=== PATIENT | female | born 1955 | race Caucasian/White ===

== ENCOUNTER 2016-12-23 06:56 | Emergency (ER) | payer MEDICARE ==
[2016-12-23 06:50] LABS: BASOPHILS 0 %; EOSINOPHILS 0 %; HEMOGLOBIN 13.1 g/dL (12.0-16.0); IMMATURE GRANULOCYTES 0.3 %; IMMATURE GRANULOCYTES ABSOLUTE 0.02 10/3/uL (0.0-0.11); LYMPHOCYTES 11.8 %; LYMPHOCYTES ABSOLUTE 0.85 10/3/uL (0.67-4.30); MEAN CORPUS HGB CONC 32.6 g/dL (32.0-36.0); MEAN CORPUSCULAR HEMOGLOB 28.2 pg (26.0-34.0); MEAN PLATELET VOLUME 9.8 fL (9.2-13.0); MONOCYTES 4.1 %; NEUTROPHILS 83.8 %; NEUTROPHILS ABSOLUTE 6.06 10/3/uL (2.02-8.40); PLATELET COUNT 139 10/3/uL (150-400); RBC DISTRIBUTION WIDTH 16.6 % (12.0-16.0); RED CELL COUNT 4.64 10/6/uL (4.0-5.6)
[~2016-12-23 06:56] MED LIST: ACET500CAP PO; AMB5 PO; APRES50 PO; ASAB PO; ATIVAN2 MG; ATIVAN2 MG PO; BENTYL10 PO; C1 PO; C2 PO; C5 PO; CALTRAT600 PO; CAT1 PO; CELEXA20 PO; CELEXA40 MG PO; CITRUCELSF; CLOBETASOL0.051 TOP; CLOBETASOL0.054 EX; CO Q-10100 MG PO; COQ-1010 MG PO; COQ-10200 MG OR; COUMADIN10 MG PO; COUMADIN4 MG PO; COUMADIN7.5 MG PO; Coumadin PO; EPOGEN; EPOGEN10000 MG/M SC; EPOGEN2000 MG/ML SC; EPOGEN4000 MG/ML SC; FISH OIL1200 MG PO; FOLBEE PLU1 OR; FOLBEE PLU1 PO; FOLBEE PO; FOLIC PO; HYDRALAZINE100 MG PO; IMOD PO; IRON INFUSION INF; JANTOVEN10 MG PO; LEVOTHROID150 MCG PO; LEVOTHYROXIN112 MCG PO; LEVOTHYROXIN175 MCG PO; LEVOTHYROXIN200 MCG PO; LIPITOR40 PO; LORTAB 5 PO; MAG-SR535 MG PO; MAGOX4 PO; NORCO1 TA1 PO; NORV5 PO; OS500+D PO; PARICALCITOL 4 MCG PO; PHAZYME PO; PHOSLO PO; PLAVIX PO; PRILO PO; PROBIOTIC; PROTONIX PO; RANITIDINE300 MG PO; REFRESH OPH; REVATIO20 PO; ROCALTROL0.5 MCG OR; RYTHMOL225 MG PO; SEVE800T PO; SIMETHICONE 180 MG PO; SYN112 PO; SYNTHROID175 MCG PO; SYNTHROID200 MCG PO; TESSALON200 MG PO; TRAN200 PO; TRANDAT100 PO; TRANDAT300 PO; TUMSROLL PO; V5 PO; VIAGRA100 MG PO; VIAGRA25 PO; VITAMIN B PO; VITC500 PO; WARFARIN PO; ZANAFLEX 4 MG TA4 MG PO; ZITH250 PO; ZOFRAN8 PO; ZYRTEC ALLGY10 MG PO
[2016-12-23 06:59] LABS: HEMATOCRIT 40.2 % (36.0-48.0); MANUAL DIFF NO %; MEAN CORPUSCULAR VOLUME 86.6 fL (80-100); WHITE BLOOD CELLS 7.2 10/3/uL (4.5-10.5)
[2016-12-23 07:04] LABS: INTERNATIONAL NORMAL RATI 1.8 UNITS (-); PARTIAL THROMBO TIME 29.6 SEC (22.5-37.2); PROTIME (NOT ORD) 20.9 SEC (12.0-14.5)
[2016-12-23 07:14] LABS: CALCIUM, SERUM 9.1 MG/DL (8.5-10.4); CHLORIDE, SERUM 99 MMOL/L (96-112); CO2 (CARBON DIOXIDE) 26 MMOL/L (24-34); SODIUM, SERUM 141 MMOL/L (135-148); TROPONIN I 0.03 NG/ML (<0.05)
[2016-12-23 07:17] LABS: BUN (BLOOD UREA NITROGEN) 15 MG/DL (6-23); CHEST PAIN PROFILE TAT 0 Hrs 32 Mins; CREATININE 3.08 MG/DL (0.55-1.02); GFR AFRICAN AMERICAN 18 ML/MIN (>=60); GFR NON AFRICAN AMERICAN 16 ML/MIN (>=60); GLUCOSE, SERUM 141 MG/DL (60-99); POTASSIUM, SERUM 3.3 MMOL/L (3.5-5.3)
== END 2016-12-23 08:33 | disposition home or self-care (01) ==
LOC: ER 06:56
PROVIDERS: Specialist
DX: I13.11 Hypertensive heart and chronic kidney disease without heart failure, with stage 5 chronic kidney disease, or end stage renal disease (principal); N18.6 End stage renal disease; Z99.2 Dependence on renal dialysis; Z95.5 Presence of coronary angioplasty implant and graft; Z90.710 Acquired absence of both cervix and uterus; Z88.8 Allergy status to other drugs, medicaments and biological substances; Z79.01 Long term (current) use of anticoagulants; Z79.899 Other long term (current) drug therapy
CPT/HCPCS: 71010; 80048; 83735; 84443; 84484; 85025; 85610; 85730; 93005; 96374; 99285; A9270-GY

== ENCOUNTER 2017-01-09 14:51 | Emergency (ER) | payer MEDICARE ==
[2017-01-09 12:02] LABS: BASOPHILS 0.4 %; BASOPHILS ABSOLUTE 0.02 10/3/uL (0.0-0.16); EOSINOPHILS 1.5 %; EOSINOPHILS ABSOLUTE 0.07 10/3/uL (0.0-0.53); HEMATOCRIT 37.5 % (36.0-48.0); HEMOGLOBIN 11.9 g/dL (12.0-16.0); LYMPHOCYTES 29.1 %; LYMPHOCYTES ABSOLUTE 1.34 10/3/uL (0.67-4.30); MANUAL DIFF NO %; MEAN CORPUS HGB CONC 31.7 g/dL (32.0-36.0); MEAN CORPUSCULAR HEMOGLOB 27.7 pg (26.0-34.0); MEAN CORPUSCULAR VOLUME 87.4 fL (80-100); MEAN PLATELET VOLUME 10.1 fL (9.2-13.0); MONOCYTES 7.8 %; MONOCYTES ABSOLUTE 0.36 10/3/uL (0.21-1.20); NEUTROPHILS 61.2 %; NEUTROPHILS ABSOLUTE 2.82 10/3/uL (2.02-8.40); PLATELET COUNT 99 10/3/uL (150-400); RED CELL COUNT 4.29 10/6/uL (4.0-5.6); WHITE BLOOD CELLS 4.6 10/3/uL (4.5-10.5)
[2017-01-09 12:09] LABS: INTERNATIONAL NORMAL RATI 2.1 UNITS (-); PARTIAL THROMBO TIME 34.8 SEC (22.5-37.2); PROTIME (NOT ORD) 23.2 SEC (12.0-14.5)
[2017-01-09 12:18] LABS: BUN (BLOOD UREA NITROGEN) 31 MG/DL (6-23); CALCIUM, SERUM 8.5 MG/DL (8.5-10.4); CHEST PAIN PROFILE TAT 0 Hrs 20 Mins; CHLORIDE, SERUM 102 MMOL/L (96-112); CO2 (CARBON DIOXIDE) 27 MMOL/L (24-34); CREATININE 6.55 MG/DL (0.55-1.02); GFR AFRICAN AMERICAN 7 ML/MIN (>=60); GFR NON AFRICAN AMERICAN 6 ML/MIN (>=60); POTASSIUM, SERUM 4.2 MMOL/L (3.5-5.3); SODIUM, SERUM 140 MMOL/L (135-148); TROPONIN I 0.02 NG/ML (<0.05)
[2017-01-09 12:19] LABS: GLUCOSE, SERUM 92 MG/DL (60-99)
== END 2017-01-09 18:46 | disposition home or self-care (01) ==
LOC: ER 14:51
PROVIDERS: Nurse Practitioner Family
DX: R07.9 Chest pain, unspecified (principal); R06.02 Shortness of breath; D69.6 Thrombocytopenia, unspecified; N18.9 Chronic kidney disease, unspecified; F17.200 Nicotine dependence, unspecified, uncomplicated; Z88.8 Allergy status to other drugs, medicaments and biological substances; Z95.5 Presence of coronary angioplasty implant and graft; Z79.899 Other long term (current) drug therapy; Z88.1 Allergy status to other antibiotic agents; Z79.01 Long term (current) use of anticoagulants
CPT/HCPCS: 71111; 80048; 81001; 83735; 83880; 84484; 85025; 85379; 85610; 85730; 93005; 99285; A9270-GY; J1040

== ENCOUNTER 2017-06-01 15:11 | Inpatient (IN) | payer MEDICARE ==
[~2017-06-01] VITALS: Ht 170.2 cm; Wt 73.0 kg
--- NOTE | ~2017-06-01 | OP ---
Record Of Operation [facility] [address] [place] [address] NAME: ALONZO STANFORD : 55 STATUS : ADM IN PAT#: [id number] AGE: 61 ADM/REG DATE : 06/01/17 MR#: [id number] REPORT SERV DATE: 06/02/17 DICTATED BY: ERVIN CHICAS DATE: 06/01/17 REPORT STATUS : Draft TRANSCRIBED BY: MILAGROS DATE: 06/01/17 DATE OF PROCEDURE: DICTATION ENDS HERE. DAVID/MILAGROS Ervin Chicas DO / [id number]
--- NOTE | ~2017-06-01 | CN ---
Consultation Report [facility] [address] [place]. [address] NAME: ALONZO STANFORD : 55 STATUS : ADM IN [facility]#: [id number] AGE: 61 ADM/REG DATE : 06/01/17 MR#: [id number] REPORT SERV DATE: 06/02/17 DICTATED BY: LAUREN SARMIENTO DATE: 06/01/17 REPORT STATUS : Draft TRANSCRIBED BY: MODL DATE: 06/01/17 CONSULT DATE OF CONSULTATION: 06/01/2017 REASON FOR CONSULTATION: Ventilator management, hypothermia management. HISTORY OF PRESENT ILLNESS: The patient is a 61-year-old white female with a past medical history of end-stage renal disease, history of atrial fibrillation, and history of aortic stenosis, status post TAVR procedure in September of this year, who is admitted to the ICU tonight following a cardiac arrest. Per the patient's family, the patient was recently hospitalized at [facility] several weeks ago with constitutional complaints and fevers of unknown etiology. Apparently, she was on antibiotics over there and had blood cultures growing 2 different species of staphylococcus. Infectious Disease was following her over there who did a variety of serologies. At the end of the day, they felt like she did not have active bacterial infection. Antibiotics were discontinued and she was sent home. At home, she was doing well until several days ago when the family says she just again became ill feeling with weakness as well as episodes of chills. They note that she developed a cough that was really nonproductive and then over the last 24 to 48 hours has been having some abdominal pain as well as nausea. She then had some emesis when she got here to the emergency room. On arrival here, she initially looked well. She was given some Phenergan for her nausea and vomiting. Sometime thereafter the patient went unresponsive and developed a ventricular tachycardia arrest requiring CPR and several rounds of ACLS and then got return of spontaneous circulation. The patient was intubated during the code blue. Following return of spontaneous circulation, the patient was not doing anything purposeful from a neurologic standpoint, so hypothermia protocol is being initiated. The patient also is in shock and on Levophed drip. The patient's family says other than that they have not noticed anything else going on over the last few days. PAST MEDICAL HISTORY: 1. End-stage renal disease, on home dialysis. 2. Hypertension. 3. Atrial fibrillation. 4. Obstructive sleep apnea. 5. Pulmonary hypertension. 6. Hypothyroidism. 7. History of severe aortic stenosis, status post TAVR in September of this year. HOME MEDICATIONS: See medication reconciliation form. ALLERGIES: INCLUDE ROCEPHIN, NITROFURANTOIN, SETH INHIBITORS, AND PREDNISONE. SOCIAL HISTORY: Per the chart, no tobacco, alcohol, or IV drug abuse. Consultation Report [address] [place]. [address] NAME: ALONZO STANFORD : 55 STATUS : ADM IN [facility]#: [id number] AGE: 61 ADM/REG DATE : 06/01/17 MR#: [id number] REPORT SERV DATE: 06/02/17 DICTATED BY: LAUREN SARMIENTO DATE: 06/01/17 REPORT STATUS : Draft TRANSCRIBED BY: MILAGROS DATE: 06/01/17 FAMILY HISTORY: Per the chart, noncontributory. REVIEW OF SYSTEMS: Unable to obtain secondary to intubation and poor mental status. PHYSICAL EXAMINATION: VITAL SIGNS: Temperature 97.9, heart rate 83, respiratory rate 17, blood pressure 81/34. GENERAL: Nonpurposeful movement, otherwise, not following commands or waking up. HEENT: ET tube in place. Pupils equal, round, and reactive to light. NECK: Supple. Nontender. No lymphadenopathy. No thyromegaly. No jugular venous distention. LUNGS: Coarse breath sounds bilaterally. CARDIOVASCULAR: Regular rate and rhythm. No murmurs, rubs, or gallops. ABDOMEN: Soft, nondistended. Positive bowel sounds. No hepatosplenomegaly. EXTREMITIES: No cyanosis, clubbing, or edema. NEURO: Currently on Precedex, but prior to sedation, she had some spontaneous movement, but nothing purposeful and not following commands. PSYCH: Unable to assess. LABS AND IMAGING: Lactic acid 18. Metabolic profile remarkable for BUN of 51, creatinine of 6.1, chloride of 93, CO2 of 18, albumin 2.4, total bilirubin 1.3, alkaline phosphatase 213, ALT 3300, AST 4400. Troponin 0.8. CBC remarkable for white count of 44,000, hemoglobin of 5.8, platelets of 104. Post-intubation blood gas with pH of 7.05, pCO2 of 40, and PO2 of 104. ASSESSMENT AND PLAN: The patient is a 61-year-old white female with past medical history of end-stage renal disease, atrial fibrillation, and aortic stenosis, status post TAVR earlier this year, who now presents to the ICU following a cardiac arrest with acute respiratory failure, shock, severe lactic acidosis, shock liver, and chronic renal failure. 1. Acute hypoxic respiratory failure. The patient currently is on the ventilator. We will get another followup ABG now that she is in the ICU and follow serial chest x- rays. We will wean her ventilator as tolerated. Currently, she is on hypothermia protocol, so our goal pO2 will be greater than 80 and our goal pCO2 will be between 30 and 45. Once she is off hypothermia protocol, we can start more aggressive weaning of her ventilator depending on her mental status. The patient's immediate post-intubation chest x-ray was concerning for potential pleural effusion on her right. She does have a drop in her hemoglobin following CPR, so we are getting another chest x-ray to make sure she is not developing a hemothorax. 2. Shock. The patient is currently requiring Levophed drip, have her on hypothermia, our goal MAP for now is greater than 80. We will add vasopressin in an attempt to lower her Levophed dose, empirically agree with antibiotics as per Nephrology. We are getting blood cultures and a procalcitonin. We will also get right upper quadrant ultrasound to evaluate her elevated LFTs, though I suspect these are secondary to shock and cardiac arrest. We will also check a cortisol level and start on hydrocortisone as the patient was on a steroid taper as an outpatient. Consultation Report [address] [place]. [address] NAME: ALONZO STANFORD : 55 STATUS : ADM IN [facility]#: [id number] AGE: 61 ADM/REG DATE : 06/01/17 MR#: [id number] REPORT SERV DATE: 06/02/17 DICTATED BY: LAUREN SARMIENTO DATE: 06/01/17 REPORT STATUS : Draft TRANSCRIBED BY: MODMaddison DATE: 06/01/17 3. Acute encephalopathy, concern for anoxic injury following cardiac arrest. We are initiating hypothermia protocol and will follow this for the next 72 hours. Given the patient's hemoglobin drop, we are looking closely for signs of active bleeding. If she does have this or becomes much more hemodynamically unstable, we will likely have to abort the hypothermia protocol and rewarm the patient. 4. Ventricular tachycardia arrest. The patient is currently on amiodarone drip. We are trending cardiac markers and getting a formal echocardiogram tomorrow. Her grand scribe, Dr. Kahn, will see the patient tomorrow. I appreciate the consult. I will continue to follow closely with you with this complicated patient. Please call if you have any questions. Total critical care time spent on this patient was 47 minutes. TIANNA/MILAGROS Lauren Sarmiento MD / [id number] CC: Lucio Kemp M.D.
--- NOTE | ~2017-06-01 | OP ---
Record Of Operation [facility] [address] [place]. [address] NAME: ALONZO STANFORD : 55 STATUS : DIS IN PAT#: [id number] AGE: 61 ADM/REG DATE : 06/01/17 MR#: [id number] REPORT SERV DATE: 06/02/17 DICTATED BY: LAUREN SARMIENTO DATE: 06/02/17 REPORT STATUS : Draft TRANSCRIBED BY: MODMaddison DATE: 06/02/17 DATE OF PROCEDURE: 06/02/2017 TITLE OF PROCEDURE: Arterial line placement. INDICATION: Shock. PROCEDURE NOTE: A time-out was completed verifying correct patient and procedure. The patient's left groin was prepped and draped in sterile fashion. No lidocaine was needed to anesthetize the area as the patient was properly sedated. An Arrow arterial line was introduced into the left common femoral artery. The catheter was threaded over the guidewire. The needle was removed with appropriate pulsatile blood return. The catheter was then sutured in place to the skin and a sterile dressing applied. I was present for the entire procedure. The patient tolerated the procedure well. There were no complications. TIANNA/MILAGROS Lauren Sarmiento MD / [id number] CC: Lucio Kemp M.D.
--- NOTE | ~2017-06-01 | HP ---
History And Physical [place] [id number] [facility] [place]. [address] NAME: ALONZO STANFORD : 55 STATUS : ADM IN [facility]#: [id number] AGE: 61 ADM/REG DATE : 06/01/17 MR#: [id number] REPORT SERV DATE: 06/02/17 DICTATED BY: LUCIO HSU DATE: 06/01/17 REPORT STATUS : Draft TRANSCRIBED BY: MODL DATE: 06/01/17 DATE OF ADMISSION: 06/01/2017 HISTORY OF PRESENT ILLNESS: A 61-year-old white female, end-stage renal disease, admitted to the hospital for cardiac arrest in the ER. Presented to the emergency room with nausea, feeling poorly, and in the emergency room, had some dry heaves and hypotension, was placed in Trendelenburg, got very short of breath and then arrested. CPR was performed initially, was in ventricular tachycardia, amiodarone drip corrected that, and she was intubated, ventilated, and possibly aspirated. She is now in ICU, being treated with hypothermia for a witnessed arrest. Intubated, ventilated, pressors, amiodarone and a bicarbonate drip in place. PAST MEDICAL HISTORY: Her past medical history is that of anephric, was on hemodialysis for a while, had a kidney transplant and now is back on hemodialysis. She has had both her [place] kidneys and her kidney transplant removed. She is home hemodialysis patient dialyzing every other day at night, supervised by Dr. Luther. In September of this year, had a TAVR procedure for aortic valve disease, is chronically hypothyroid. Has hypertension with LVH and diastolic congestive heart failure, coronary artery disease followed by Dr. Mayur Pond, chronic arthritis, hyperlipidemia, pulmonary hypertension after DVT, and an inferior vena cava filter, but on Coumadin for atrial fibrillation. Recently at [facility], where she was admitted for fever and chills, thought initially to be septic and blood cultures did grow Staph, but thought to be contaminant. Was treated with vancomycin initially, it was stopped. Dr. Rainer Curry performed a ELIZA and ablation on 05/18/2017 because of some tachyarrhythmias, developed some pericarditis after the ablation, was treated with daily hemodialysis and finally agreed to steroid therapy and was sent home on 05/28/2017 with tapering steroid regimen. She has been nauseated since then, poor p.o. intake, part of it and thought to be due to constipation. She is now four days later presented to the emergency room at [facility] for care. SOCIAL HISTORY: Noncontributory. FAMILY HISTORY: Noncontributory. MEDICATIONS: Not clear at this point as with no other medicines were when she left the [facility] after TAVR, but do not know the medications she went home from [facility]. ALLERGIES: SHE IS ALLERGIC TO ROCEPHIN, SETH INHIBITORS, NITROFURANTOIN, PREDNISONE, (DEVELOPED PSEUDOTUMOR CEREBRI ON STEROIDS IN THE PAST), AND HYDRALAZINE. PHYSICAL EXAMINATION: VITAL SIGNS: Currently 88/53, heart rate of 80, respirations of 24, and afebrile. On amiodarone drip, bicarbonate drip and Levophed drip. Starting vasopressin. In the emergency room, she was moving all four extremities, but not purposely and now is unresponsive on Precedex. HEENT: Shows oral ET tube. LUNGS: With good air movement bilaterally. History And Physical [address] [address] NAME: ALONZO STANFORD : 55 STATUS : ADM IN [facility]#: [id number] AGE: 61 ADM/REG DATE : 06/01/17 MR#: [id number] REPORT SERV DATE: 06/02/17 DICTATED BY: LUCIO HSU DATE: 06/01/17 REPORT STATUS : Draft TRANSCRIBED BY: MILAGROS DATE: 06/01/17 CARDIOVASCULAR: Without rub. ABDOMEN: Soft. Bowel sounds are scant. EXTREMITIES: No edema. Has a right upper extremity AV fistula. NEUROLOGIC: As above. Sedated. No rash. No significant edema. LABORATORY DATA: Lab shows pH of 7.05, pCO2 of 40, pO2 of 104, 100% FiO2 on a ventilator. Sodium 137, potassium 5.1, chloride 96, CO2 of 17, BUN of 48, creatinine 6.09, blood sugar 139, calcium 8.4, magnesium 2.6. Albumin 3.15, total protein 6.2, total bilirubin was 1.8, SGOT of 2219, SGPT of 1482, lipase 351. Troponins after the arrest showed a troponin of 0.71. TSH was 27. Lactic acid level was 15.6. Blood cultures x2 are pending. White count is 30,000, hemoglobin 7, hematocrit 24, platelet count 66,000. INR of 5.2, ProTime of 47, PTT 53. Chest x-ray shows ET tube in good position, but pleural effusion developing in the right hemithorax, possibly from blood post CPR. ASSESSMENT: 1. Nausea and vomiting, suspicious for liver disease at home, although was constipated and some of her nausea may have been related more to constipation than any other etiology. I am not sure if she was started on new medications at [facility] either to account for the liver changes and/or nausea. 2. End-stage renal disease, on hemodialysis Monday, Monday, and Monday. Last dialysis yesterday. Followed by Dr. Luther. Right arm arteriovenous fistula. 3. Atherosclerotic cardiovascular disease with history of coronary artery disease, Dr. Mayur Pond follows; peripheral vascular disease, status post transcatheter aortic valve replacement in September by Dr. Rosales; and status post ablation on 05/18/[address] Rainer Curry. 4. Hypothyroidism. 5. Hypertension with left ventricular hypertrophy and diastolic heart failure. 6. Anticoagulated for transcatheter aortic valve replacement and atrial fibrillation. INR made worse by elevated liver enzymes. The family states her INR was 2.3 yesterday. PLAN: Critical care consult. I have discussed the case with Dr. Sarmiento, and I have gone over the patient with him and discussed the situation with him and the family. I have consulted Dr. Rainer Curry for arrhythmias, Dr. Mayur Pond for Cardiology, starting antibiotics, on pressors, and amiodarone and bicarbonate drip. We will follow serial labs overnight. CHINTAN/MILAGROS Lucio Hsu M.D. / [id number] CC: History And Physical [address] [address] NAME: ALONZO STANFORD : 55 STATUS : ADM IN [facility]#: [id number] AGE: 61 ADM/REG DATE : 06/01/17 MR#: [id number] REPORT SERV DATE: 06/02/17 DICTATED BY: LUCIO HSU DATE: 06/01/17 REPORT STATUS : Draft TRANSCRIBED BY: MODL DATE: 06/01/17 Lucio Hsu M.D.
--- NOTE | ~2017-06-01 | EHP ---
ER History and Physical [address] [place]. [address] NAME: ALONZO STANFORD : 55 STATUS : ADM IN [facility]#: [id number] AGE: 61 ADM/REG DATE : 06/01/17 MR#: [id number] REPORT SERV DATE: 06/02/17 DICTATED BY: ERVIN HURD DATE: 06/01/17 REPORT STATUS : Draft TRANSCRIBED BY: MILAGROS DATE: 06/01/17 CHIEF COMPLAINT: Nausea and vomiting. HISTORY OF PRESENT ILLNESS: The patient is a 61-year-old female who presented to the emergency room this afternoon for persistent nausea and generalized weakness. She is a hemodialysis patient and has home hemodialysis. Per the history which is somewhat hard to get from her and her family that she recently was admitted to [facility] and had some multiple blood cultures that were positive what sounds to be several different species of bacteria. She had a somewhat prolonged course there and was discharged and since then has had persistent nausea and continued to decline at home. She also recently had an atrial fib ablation there. Today, when I see the patient, she is complaining of nausea, in no acute distress, but does appear to feel ill. The family is at the bedside. This note is supplement the paper chart in the ER. During her time here, the patient required multiple doses of antiemetics and was persistently nauseated. Workup ensued did reveal that she had a potassium of 6 despite her hemodialysis completion last night as well as calcium of 6.3. I actually was on the way to discuss the labs with the patient when a code blue was called overhead by the nursing staff evidently. The patient had become unresponsive. I arrived and found CPR in progress. The patient was pulseless. See the code sheet for full details of the ACLS and resuscitation efforts. After a pulse was regained, the patient's airway was secured. She was moved to a larger room where during the first episode, she was pulseless and then ended up converting to be V tach, which required synchronized cardioversion. She was moved in the room where she again resumed V tach. She was given amiodarone as well as synchronized cardioversion with resolution of the VT. The right femoral central line was placed by myself for access. See the paper chart for full details of procedure. The patient continued to have multiple episodes of pulselessness requiring CPR as well as multiple rounds of epinephrine administration. Once she lost her pulse initially, bicarb boluses were initiated as well as correction of her potassium with calcium, D50, and insulin. A call to Nephrology as well as Cardiology was made. I discussed this case with Dr. Kemp as well Prabhakar ontiveros, the field radio operator, as well as Dr. Kahn, the patient's primary rodding machine tender. A call has been placed to Dr. Curry, who is her insurance customer service specialist as well. Initiation of healing protocol was done in ICU admission. At the time of this dictation, patient has been somewhat stable. No more VT once amiodarone bolus and drip had been started as well as blood pressure remains stable on a Levophed drip. We placed the patient on a bicarb drip due to worsening acidemia and this has been discussed with knitter mechanic as well. Repeat labs as well as repeat blood gases showed worsening acidemia and an INR of 5.2. On chest x-ray here shows a somewhat of a moderate to large size right pleural effusion, which on the same is possibly related to hemothorax given the amount of CPR the patient has received. Dr. Kemp was notified. An FFP has been ordered, will be started on admission to the ICU. She does have a procalcitonin of 0.79 as well as a white blood cell count of 30 now. Given the clinical history here in the ER, I am also pretty suspicious that the patient likely aspirated which is what is said in much of the events that have happened since. ER History and Physical [address] [address] NAME: ALONZO STANFORD : 55 STATUS : ADM IN [facility]#: [id number] AGE: 61 ADM/REG DATE : 06/01/17 MR#: [id number] REPORT SERV DATE: 06/02/17 DICTATED BY: ERVIN HURD DATE: 06/01/17 REPORT STATUS : Draft TRANSCRIBED BY: MILAGROS DATE: 06/01/17 The patient's family was updated continuously by me as well as nursing staff during her workup and resuscitative efforts here. I discussed and advised them on ICU admission and further care per primary team. Greater than 120 minutes of critical care time outside of any billable procedures. DAVID/MILAGROS Ervin Hurd DO / [id number] CC: Lucio Kemp M.D.
--- NOTE | ~2017-06-01 | OP ---
Record Of Operation [facility] [address] [place]. [address] NAME: ALONZO STANFORD : 55 STATUS : ADM IN [facility]#: [id number] AGE: 61 ADM/REG DATE : 06/01/17 MR#: [id number] REPORT SERV DATE: 06/02/17 DICTATED BY: ERVIN HURD DATE: 06/01/17 REPORT STATUS : Draft TRANSCRIBED BY: MODL DATE: 06/01/17 DATE OF PROCEDURE: 06/01/2017 PROCEDURE: Endotracheal intubation. INDICATION FOR PROCEDURE: Respiratory failure. PROCEDURE IN DETAIL: The patient is undergoing CPR in a code situation and required emergent intubation during one of the pulse checks. The [id number] that was being used to ventilate the patient was removed and using a Mac 3 blade, the cords were attempted to be visualized, but due to the patient's resistance to mouth opening and still moving somewhat, the first attempted intubation was abandoned and continued [id number] was done with a good chest rise and good ventilation. Rocuronium was used for paralyzation of the patient and on second attempt, the mouth was able to be opened easily. The patient was positioned where using a Mac 3 blade with good visualization of the cords, a 7.5 ET tube was placed through the cords and the cuff was insufflated. The patient had good color capnography post intubation with good bilateral breath sounds. ET tube was 2 cm above the yamile on post intubation chest x-ray. COMPLICATIONS: None. DAVID/MILAGROS Ervin Hurd DO / [id number] CC: MEEK HSU
[2017-06-01 17:04] LABS: BASOPHILS 0 %; BASOPHILS ABSOLUTE 0.01 10/3/uL (0.0-0.16); EOSINOPHILS 0 %; ER CBC TAT 0 Hrs 12 Mins; HEMATOCRIT 26.6 % (36.0-48.0); HEMOGLOBIN 8.4 g/dL (12.0-16.0); LYMPHOCYTES 7.4 %; MANUAL DIFF NO %; MEAN CORPUS HGB CONC 31.6 g/dL (32.0-36.0); MEAN CORPUSCULAR HEMOGLOB 28.3 pg (26.0-34.0); MEAN CORPUSCULAR VOLUME 89.6 fL (80-100); MEAN PLATELET VOLUME 12.7 fL (9.2-13.0); NEUTROPHILS 81.6 %; NEUTROPHILS ABSOLUTE 19.91 10/3/uL (2.02-8.40); PLATELET COUNT 106 10/3/uL (150-400); RBC DISTRIBUTION WIDTH 18.4 % (12.0-16.0); RED CELL COUNT 2.97 10/6/uL (4.0-5.6); WHITE BLOOD CELLS 24.4 10/3/uL (4.5-10.5)
[2017-06-01 17:22] LABS: CHLORIDE, SERUM 96 MMOL/L (96-112); GLUCOSE, SERUM 96 MG/DL (60-99); SGPT(ALT) 1482 U/L (5-65); TOTAL PROTEIN 6.2 G/DL (6.0-8.5)
[2017-06-01 17:35] LABS: SGOT(AST) 2249 U/L (5-40)
[2017-06-01 17:36] LABS: ALBUMIN 3.1 G/DL (3.5-5.0); ALKALINE PHOSPHATASE 237 U/L (45-117); BUN (BLOOD UREA NITROGEN) 47 MG/DL (6-23); CALCIUM, SERUM 6.7 MG/DL (8.5-10.4); CO2 (CARBON DIOXIDE) 16 MMOL/L (24-34); CREATININE 5.91 MG/DL (0.55-1.02); GFR AFRICAN AMERICAN 8 ML/MIN (>=60); GFR NON AFRICAN AMERICAN 7 ML/MIN (>=60); GLOBULIN 3.1 G/DL (2.5-4.1); SODIUM, SERUM 133 MMOL/L (135-148); TOTAL BILIRUBIN 1.8 MG/DL (0-1.2)
[2017-06-01 18:56] LABS: BASOPHILS 0.1 %; BASOPHILS ABSOLUTE 0.04 10/3/uL (0.0-0.16); EOSINOPHILS 0.2 %; EOSINOPHILS ABSOLUTE 0.05 10/3/uL (0.0-0.53); HEMOGLOBIN 7.4 g/dL (12.0-16.0); IMMATURE GRANULOCYTES 5.9 %; IMMATURE GRANULOCYTES ABSOLUTE 1.82 10/3/uL (0.0-0.11); LYMPHOCYTES 13.8 %; LYMPHOCYTES ABSOLUTE 4.27 10/3/uL (0.67-4.30); MEAN CORPUS HGB CONC 30.8 g/dL (32.0-36.0); MEAN CORPUSCULAR HEMOGLOB 28.8 pg (26.0-34.0); MEAN CORPUSCULAR VOLUME 93.4 fL (80-100); MONOCYTES 7.3 %; MONOCYTES ABSOLUTE 2.26 10/3/uL (0.21-1.20); NEUTROPHILS 72.7 %; NEUTROPHILS ABSOLUTE 22.46 10/3/uL (2.02-8.40); PLATELET COUNT 66 10/3/uL (150-400); RBC DISTRIBUTION WIDTH 18.8 % (12.0-16.0); RED CELL COUNT 2.57 10/6/uL (4.0-5.6); WHITE BLOOD CELLS 30.9 10/3/uL (4.5-10.5)
[2017-06-01 18:59] LABS: MANUAL DIFF NO %
[2017-06-01 19:08] LABS: INTERNATIONAL NORMAL RATI 5.2 UNITS (-); PROTIME (NOT ORD) 47.5 SEC (12.0-14.5)
[2017-06-01 19:10] LABS: BE (BASE EXCESS) -18.2 MEQ/L (0 +/- 2.5); CARBOXYHEMOGLOBIN 2.6 % (0-3); HCO3 (ACTUAL BICARBONATE) 10.8 MEQ/L (23-27); HEMOBLOGIN CONTENT 7.1 G/DL (12-16); INSTRUMENT SERIAL # 8087; METHEMOGLOBIN 0.3 % (0-3); MODE CMV; O2 CONTENT 9.3 VOL% (18-24); OPERATOR ID 17589; PCO2 (CO2 TENSION) 40 MMHG (35-45); PO2 (O2 TENSION) 104 MMHG (79-93); SAMPLE Arterial; TIDAL VOLUME 500 ML; pH 7.05 (7.37-7.43)
[2017-06-01 19:17] LABS: BUN (BLOOD UREA NITROGEN) 48 MG/DL (6-23); CHLORIDE, SERUM 96 MMOL/L (96-112); CO2 (CARBON DIOXIDE) 17 MMOL/L (24-34); CREATININE 6.09 MG/DL (0.55-1.02); GFR AFRICAN AMERICAN 8 ML/MIN (>=60); GFR NON AFRICAN AMERICAN 7 ML/MIN (>=60); POTASSIUM, SERUM 5.1 MMOL/L (3.5-5.3); SODIUM, SERUM 137 MMOL/L (135-148)
[2017-06-01 19:22] LABS: CALCIUM, SERUM 8.4 MG/DL (8.5-10.4); CHEST PAIN PROFILE TAT 0 Hrs 32 Mins; GLUCOSE, SERUM 139 MG/DL (60-99); TROPONIN I 0.71 NG/ML (<0.05)
[2017-06-01 19:24] LABS: PROCALCITONIN 0.79 ng/mL (<0.5)
[2017-06-01 19:25] LABS: LACTATE 15.6 MMOL/L (0.3-2.4)
[2017-06-01 19:29] LABS: BAND NEUTROPHILS 5 %; ER DIFF TAT 0 Hrs 39 Mins; IMMATURE GRANS ABSOLUTE (CALC) 0.93 10/3/uL (0.0-0.11); LYMPHOCYTES 9 %; LYMPHOCYTES ABSOLUTE (CALC) 2.78 10/3/uL (0.67-4.30); METAMYELOCYTES 2 %; MONOCYTES 8 %; MONOCYTES ABSOLUTE (CALC) 2.47 10/3/uL (0.21-1.20); MYELOCYTES 1 %; NEUTROPHILS ABSOLUTE (CALC) 24.72 10/3/uL (2.02-8.40); SEGMENTED NEUTROPHIL (0) 75 %; TOTAL NUCLEATED CELLS 100
[2017-06-01 19:30] LABS: ANISOCYTOSIS 1+ (5-10/OIF) (0-5/OIF); PLATELET ESTIMATE DEC (ADEQUATE)
[2017-06-01 20:51] LABS: HEMOGLOBIN 5.8 g/dL (12.0-16.0); MEAN CORPUS HGB CONC 30.5 g/dL (32.0-36.0); MEAN CORPUSCULAR HEMOGLOB 28.4 pg (26.0-34.0); MEAN CORPUSCULAR VOLUME 93.1 fL (80-100); MEAN PLATELET VOLUME 11.4 fL (9.2-13.0); PLATELET COUNT 104 10/3/uL (150-400); RBC DISTRIBUTION WIDTH 18.8 % (12.0-16.0); RED CELL COUNT 2.04 10/6/uL (4.0-5.6); WHITE BLOOD CELLS 44.2 10/3/uL (4.5-10.5)
[2017-06-01 20:57] LABS: MANUAL DIFF YES %
[2017-06-01 21:09] LABS: ANISOCYTOSIS 1+ (5-10/OIF) (0-5/OIF); MACROCYTES 1+ (5-10/OIF) (0-5/OIF); MICROCYTES 1+ (5-10/OIF) (0-5/OIF); MONOCYTES 4 %; MONOCYTES ABSOLUTE (CALC) 1.77 10/3/uL (0.21-1.20); TOTAL NUCLEATED CELLS 100
[2017-06-01 21:18] LABS: BAND NEUTROPHILS 8 %; SEGMENTED NEUTROPHIL (0) 80 %
[2017-06-01 21:19] LABS: IMMATURE GRANS ABSOLUTE (CALC) 1.33 10/3/uL (0.0-0.11); LYMPHOCYTES 5 %; LYMPHOCYTES ABSOLUTE (CALC) 2.21 10/3/uL (0.67-4.30); METAMYELOCYTES 3 %
[2017-06-01 21:20] LABS: PLATELET ESTIMATE SLT DEC (ADEQUATE)
[2017-06-01 21:21] LABS: BURR CELLS 1+ (3-10/OIF) (0-2/OIF); SCHISTOCYTES FEW (3-10/OIF)
[2017-06-01 21:27] LABS: BUN (BLOOD UREA NITROGEN) 51 MG/DL (6-23); CHLORIDE, SERUM 93 MMOL/L (96-112); CO2 (CARBON DIOXIDE) 18 MMOL/L (24-34); CREATININE 6.19 MG/DL (0.55-1.02); GFR AFRICAN AMERICAN 8 ML/MIN (>=60); GFR NON AFRICAN AMERICAN 7 ML/MIN (>=60); GLUCOSE, SERUM 148 MG/DL (60-99); POTASSIUM, SERUM 4.3 MMOL/L (3.5-5.3); SGPT(ALT) 3306 U/L (5-65); SODIUM, SERUM 138 MMOL/L (135-148)
[2017-06-01 21:30] LABS: ALBUMIN 2.4 G/DL (3.5-5.0); ALKALINE PHOSPHATASE 213 U/L (45-117); CALCIUM, SERUM 6.9 MG/DL (8.5-10.4); GLOBULIN 2.4 G/DL (2.5-4.1); PHOSPHORUS, SERUM 8.4 MG/DL (2.5-4.5); TOTAL BILIRUBIN 1.3 MG/DL (0-1.2); TOTAL PROTEIN 4.8 G/DL (6.0-8.5)
[2017-06-01 21:31] LABS: CK-MB 4.5 NG/ML; CPK 314 U/L (0-200); SGOT(AST) 4447 U/L (5-40); TROPONIN I 0.83 NG/ML (<0.05)
[2017-06-01 22:49] LABS: INTERNATIONAL NORMAL RATI 4.7 UNITS (-); PARTIAL THROMBO TIME 43.2 SEC (22.5-37.2); PROTIME (NOT ORD) 43.5 SEC (12.0-14.5)
[2017-06-01 23:28] LABS: BE (BASE EXCESS) -11.4 MEQ/L (0 +/- 2.5); CARBOXYHEMOGLOBIN 0.3 % (0-3); HCO3 (ACTUAL BICARBONATE) 16.1 MEQ/L (23-27); HEMOBLOGIN CONTENT 5.5 G/DL (12-16); INSTRUMENT SERIAL # 11843; METHEMOGLOBIN 3.9 % (0-3); O2 CONTENT 0.8 VOL% (18-24); PCO2 (CO2 TENSION) 46 MMHG (35-45); PO2 (O2 TENSION) 19 MMHG (79-93); SAMPLE Arterial; pH 7.16 (7.37-7.43)
[2017-06-01 23:29] LABS: MODE CMV; TIDAL VOLUME 500 ML
[2017-06-02 01:01] LABS: MEAN CORPUSCULAR HEMOGLOB 30.1 pg (26.0-34.0); MEAN CORPUSCULAR VOLUME 92.2 fL (80-100); MEAN PLATELET VOLUME 12.2 fL (9.2-13.0); NUCLEATED RED BLOOD CELLS 0.1 /100WBC (0-0); RBC DISTRIBUTION WIDTH 16.5 % (12.0-16.0)
[2017-06-02 01:03] LABS: WHITE BLOOD CELLS 45.5 10/3/uL (4.5-10.5)
[2017-06-02 01:04] LABS: HEMATOCRIT 23.6 % (36.0-48.0); HEMOGLOBIN 7.7 g/dL (12.0-16.0); MEAN CORPUS HGB CONC 32.6 g/dL (32.0-36.0); PLATELET COUNT 68 10/3/uL (150-400); RED CELL COUNT 2.56 10/6/uL (4.0-5.6)
[2017-06-02 01:05] LABS: MANUAL DIFF YES %
[2017-06-02 01:12] LABS: INTERNATIONAL NORMAL RATI 5.2 UNITS (-); PARTIAL THROMBO TIME 45.6 SEC (22.5-37.2); PROTIME (NOT ORD) 47.4 SEC (12.0-14.5)
[2017-06-02 01:23] LABS: ALBUMIN 2.2 G/DL (3.5-5.0); CHLORIDE, SERUM 99 MMOL/L (96-112); CO2 (CARBON DIOXIDE) 19 MMOL/L (24-34); PHOSPHORUS, SERUM 8.9 MG/DL (2.5-4.5); POTASSIUM, SERUM 4.9 MMOL/L (3.5-5.3); SODIUM, SERUM 143 MMOL/L (135-148)
[2017-06-02 01:24] LABS: BUN (BLOOD UREA NITROGEN) 46 MG/DL (6-23); CREATININE 5.51 MG/DL (0.55-1.02); GFR AFRICAN AMERICAN 9 ML/MIN (>=60); GFR NON AFRICAN AMERICAN 8 ML/MIN (>=60); GLUCOSE, SERUM 70 MG/DL (60-99)
[2017-06-02 03:20] LABS: BLASTS 2 % (0); LYMPHOCYTES 5 %; LYMPHOCYTES ABSOLUTE (CALC) 2.28 10/3/uL (0.67-4.30); NEUTROPHILS ABSOLUTE (CALC) 42.32 10/3/uL (2.02-8.40); SEGMENTED NEUTROPHIL (0) 93 %; TOTAL NUCLEATED CELLS 100
== END 2017-06-02 04:07 | disposition expired | DRG 208 ==
LOC: ER 15:11 → CVICU 19:25
PROVIDERS: Hospitalist; Internal Medicine; Internal Medicine Nephrology; Nurse Practitioner Acute Care
PROC: 5A1935Z Respiratory Ventilation, Less than 24 Consecutive Hours (ICD-10-PCS; principal; 2017-06-01)
PROC: 04HY32Z Insertion of Monitoring Device into Lower Artery, Percutaneous Approach (ICD-10-PCS; 2017-06-01)
PROC: 0BH17EZ Insertion of Endotracheal Airway into Trachea, Via Natural or Artificial Opening (ICD-10-PCS; 2017-06-01)
DX: J96.01 Acute respiratory failure with hypoxia (principal); I46.9 Cardiac arrest, cause unspecified; R57.9 Shock, unspecified; K72.00 Acute and subacute hepatic failure without coma; G93.49 Other encephalopathy; N18.6 End stage renal disease; I47.2 Ventricular tachycardia; I27.2 Other secondary pulmonary hypertension; I13.2 Hypertensive heart and chronic kidney disease with heart failure and with stage 5 chronic kidney disease, or end stage renal disease; I50.32 Chronic diastolic (congestive) heart failure; E87.2 Acidosis; Z94.0 Kidney transplant status; Z66 Do not resuscitate; E03.9 Hypothyroidism, unspecified; I25.10 Atherosclerotic heart disease of native coronary artery without angina pectoris; E78.5 Hyperlipidemia, unspecified; K59.00 Constipation, unspecified; I48.2 Chronic atrial fibrillation; G47.33 Obstructive sleep apnea (adult) (pediatric); Z99.2 Dependence on renal dialysis; Z95.5 Presence of coronary angioplasty implant and graft; Z79.01 Long term (current) use of anticoagulants; Z88.1 Allergy status to other antibiotic agents; Z88.8 Allergy status to other drugs, medicaments and biological substances
CPT/HCPCS: 31500; 31720; 36415; 36600; 71010; 74000; 80048; 80053; 80069; 82330; 82550; 82553; 82803; 82805; 82947; 82962; 83605; 83690; 83735; 84100; 84132; 84145; 84295; 84443; 84484; 85014; 85025; 85610; 85730; 86850; 86900; 86901; 86920; 86922; 87040; 87070; 87205; 92950; 93005; 94002; A9270-GY; C9113; J0282; J1720; J2370; J2543; J2550; J3010; P9016; P9059